=== PATIENT | female | born 1990 | race Caucasian/White ===

== ENCOUNTER 2023-06-22 16:17 | Emergency (ER) | payer BC, SELFPAY ==
[2023-06-22 16:26] VITALS: BP 104/73
[2023-06-22 16:49] LABS: % Basophils 0.7 % (0-2); % Eosinophils 2.9 % (0-6); % Immature Granulocytes 0.3 % (0-0.5); % Lymphocytes 25.7 % (20.5-51.1); % Monocytes 7.8 % (1.7-9.3); % Neutrophils 62.6 % (42.2-75.2); Absolute Basophils 0.1 10^3/uL (0-0.2); Absolute Eosinophils 0.4 10^3/uL (0-0.7); Absolute Lymphocytes 3.6 10^3/uL (1.2-3.4); Absolute Monocytes 1.1 10^3/uL (0.1-0.6); Absolute Neutrophils 8.7 10^3/uL (1.4-6.5); Hematocrit 39.1 % (37.0-47.0); Hemoglobin 13.7 g/dL (12.0-16.0); Mean Corpuscular Hgb 31.1 pg (27.0-31.0); Mean Corpuscular Volume 88.9 fL (81.0-99.0); Mean Platelet Volume 9.5 fL (7.4-10.4); Nucleated Red Blood Cells % 0 %; Platelet Count 369 10^3/uL (130-400); White Blood Cell Count 13.9 10^3/uL (4.8-10.8)
[2023-06-22 17:01] LABS: HCG, Serum Qualitative Screen Negative
[2023-06-22 17:03] LABS: ALT (SGPT) 10 U/L (0-35); AST (SGOT) 16 U/L (14-36); Albumin 3.7 g/dl (3.5-5.0); Alkaline Phosphatase 63 U/L (38-126); Blood Urea Nitrogen < 2 mg/dl (7-17); Calcium 9.4 mg/dl (8.4-10.2); Carbon Dioxide 28 mmol/L (22-30); Chloride 104 mmol/L (98-107); Glucose 94 mg/dl (70-99); Potassium 4.1 mmol/L (3.5-5.1); Sodium 134 mmol/L (135-145); Total Bilirubin 0.4 mg/dl (0.2-1.3); Total Protein 6.6 g/dl (6.3-8.2); eGFR > 60.00
--- NOTE | 2023-06-22 17:36 | ED.GENMED ---
History of Present Illness
General
Chief Complaint: Musculo-Skeletal Complaint
Time Seen by Provider: 06/22/23 17:36
Travel History
Have you had any contact with someone who has COVID-19?: No
Do you have any symptoms of coronavirus? Fever > 100 degrees, chills, cough, shortness of breath, sore throat, loss of taste or smell, muscle aches, or headache?: No
History of Present Illness
History of Present Illness:
HPI: Patient was sent here from urgent care for further evaluation of left-sided chest wall pain. There was some talk for the possibility of pulmonary embolus however the patient no longer is on control. She has not been smoking recently.
She describes pain which is positional in nature over the last few days after she was coughing related to bronchitis. She says that she has to 'hold my boob' to help relieve some of the pain. The pain worsens with coughing and certain movements of
the chest wall. Motrin has not helped much. She highly doubts that she has a blood clot.
EXAM:
GENERAL: Well appearing but continues to hold the left chest related to left chest pain
HEENT: Moist oral mucosa
CARDIOVASCULAR: No murmurs, normal heart rate, regular rhythm, marked left-sided chest wall tenderness
PULMONARY: No respiratory distress, breath sounds are clear and equal
ABDOMEN: Soft with no peritoneal signs, no tenderness
NEUROLOGIC: Excellent strength all extremities, no coordination deficits
PSYCHIATRIC: Appropriate mental status, normal insight and judgement
EXTREMITIES: Nontender, no edema, moves all extremities equally
SKIN: No rash, no lesions
TIME OF INITIAL ENCOUNTER: 5:50 PM
NUMBER AND COMPLEXITY OF PROBLEMS ADDRESSED AT THE ENCOUNTER
� Chronic conditions affecting care: Asthma, anxiety/depression, alcoholism
� Acute Exacerbation and/or Progression of Chronic Illness: This is an acute problem
� Differential Diagnosis includes: Chest wall pain/costochondritis, PE extremely unlikely, pneumothorax, pneumonia
AMOUNT AND/OR COMPLEXITY OF DATA TO BE REVIEWED AND ANALYZED
� I performed an independent evaluation of and my interpretation is:
EKG:
CT:
X-rays: I personally viewed the x-ray that was obtained from urgent care�I see no evidence for pneumothorax or rib fracture or infiltrates
Laboratory Studies: White count 13.9, chemistries unremarkable, hCG negative
Other:
� Review of other/old records: X-ray reviewed from urgent care
� Clinical information was obtained by an independent historian: I spoke to the mother at bedside
� Prescriptions/Medications Considered but not given:
� Further testing considered but not performed:
RISK OF COMPLICATIONS AND/OR MORBIDITY OR MORTALITY OF PATIENT MANAGEMENT
� Social determinants of health affecting care: Lives at home, works as a therapist
� Discussion with other providers:
� Escalation of care including admission/observation vs risk of discharge considered: The pain clearly is positional in nature. She reports no significant shortness of breath. I have virtually no concern for PE. The patient
agrees and feels her main concern is the pain that she has been experiencing. She has pain with certain movements of the torso and continues to hold the left chest wall due to the associated pain. Will try NSAIDs, short course of narcotic (patient
has history of alcohol use in the past).
Phy Exam
Physical Exam
Physical Exam:
See HPI
Course
Orders/Labs/Results
Orders:
Orders
06/22/23 16:31
EKG [Electrocardiogram (*1)] Urgent
Reason for Study: Chest Pain
EKG- Treatment ONCE
06/22/23 16:32
Test Result ONCE
06/22/23 16:45
CBC/With Diff [Complete Blood Count/With Diff] Urgent
Comprehensive Metabolic Panel Urgent
HCG, Serum Qualitative Screen Urgent
06/22/23 17:58
Lidocaine [Lidocaine 4% Patch] 1 patch TOPICAL NOW STA
06/22/23 17:59
Ketorolac [Toradol] 30 mg IM NOW STA
Oxycodone/Acetaminophen [Percocet 5/325] 1 tablet PO NOW STA
Abnormal Lab Results
06/22/23
16:45
WBC 13.9 H 10^3/uL
(4.8-10.8)
MCH 31.1 H pg
(27.0-31.0)
Absolute Neuts (auto) 8.7 H 10^3/uL
(1.4-6.5)
Absolute Lymphs (auto) 3.6 H 10^3/uL
(1.2-3.4)
Absolute Monos (auto) 1.1 H 10^3/uL
(0.1-0.6)
Sodium 134 L mmol/L
(135-145)
BUN < 2 L mg/dl
(7-17)
06/22/23 16:45
06/22/23 16:45
Vital Signs
Initial and Last Documented VS:
Initial Vital Signs
Pulse Resp BP Pulse Ox
98 16 104/73 97
06/22/23 16:26 06/22/23 16:26 06/22/23 16:26 06/22/23 16:26
Last Documented Vital Signs
Pulse Resp BP Pulse Ox
98 16 104/73 97
06/22/23 16:26 06/22/23 16:26 06/22/23 16:26 06/22/23 16:26
*Critical Care Note
Total Time (30-74mins, 75-104mins- exclusive of procedures): Not Applicable
ED Attending Note
-
Portions of this chart may have been created with voice recognition software.� Occasional wrong word or��sound alike� substitutions may have occurred due to the inherent limitations of voice recognition software.
Discharge Plan
Departure
Patient Disposition: Home (Routine Discharge)
Date of Disposition: 06/22/23
Time of Disposition: 17:59
Patient with high blood pressure during this ER visit?: No
Discharge Problem:
Acute chest wall pain
Instructions: Costochondritis
Prescriptions:
New
oxycodone-acetaminophen [Percocet] 5-325 mg tablet
1 tab PO Q8H PRN (Reason: Pain) Qty: 10 0RF
Referrals:
Beatriz Herrera MD [Family Provider] -
Activity Restrictions/Additional Instructions:
You could try [id number] lidocaine patches in the daytime and take them off at night. I still recommend trying/continuing [id number] Motrin�take 3 of these every 8 hours with food for a few days. We gave you a dose of Toradol which is
similar to Motrin as well as 1 Percocet. Take Percocet I recommend to limit the use given the high addiction potential. If you take taking something like MiraLAX to prevent constipation.
Interventions
Interventions:
*Risk Screen - Suicide Last Done: 06/22/23 16:26
*General Assessment Last Done: 06/22/23 16:26
*Neglect/Abuse Screening Last Done: 06/22/23 16:26
Discharge Date and Time
Print Language: HUNGARIAN
[2023-06-22] MEDS: PERCOCET 5/325 1 TABLET PO (18:26)
[2023-06-22] MEDS: LIDOCAINE 4% PATCH 1 PATCH TOPICAL (18:27)
[2023-06-22] MEDS: TORADOL 30 MG IM (18:28)
[2023-06-22 18:40] VITALS: BP 133/76
== END 2023-06-22 18:45 | disposition home or self-care (01) ==
LOC: EMR 16:17
PROVIDERS: Emergency Medicine; EMERGENCY PHYSICIAN Emergency Medicine; FAMILY PHYSICIAN Internal Medicine
DX: R07.89 Other chest pain (principal)
CPT/HCPCS: 99283; 96372; 80053; 84703; 85025; 93005